=== PATIENT | female | born 1955 | race Caucasian/White ===

== ENCOUNTER 2019-09-24 08:10 | Day surgery (SDC) | payer MEDICARE, BC ==
[2019-09-21 12:43] LABS: HEMATOCRIT 40.3 % (36.0-48.0); HEMOGLOBIN 13.6 g/dL (12-16); MCH 30.7 pg (26.0-34.0); MCHC 33.7 g/dL (31.0-37.0); MEAN PLATELET VOLUME 11.1 fL (7.4-10.4); RBC 4.43 10x6/uL (4.00-5.40); RDW 12.7 % (11.5-14.5); WBC 6.6 10x3/uL (4.8-10.8)
[~2019-09-24] VITALS: Ht 167.6 cm; Wt 73.0 kg
[~2019-09-24 08:10] MED LIST: AMBIEN10 MG PO; BAYER CHEWABLE81 MG PO; BENADRYL25 MG; CALCIUM 600 +1 EAC3 PO; CARDURA1 MG PO; COREG12.5 MG PO; EVISTA60 MG PO; FISH OIL 1,0001 CA1 PO; GORDON'S VITE480 G1; ISOSORBIDE MONO30 M1 PO; LIPITOR20 MG PO; LUTEIN20 MG; MAG-OX 400 MG400 MG PO; MULTI-DAY VITAM1 TAB PO; NITROSTAT0.3 MG SL; NP THYROID30 MG; OMEPRAZOLE20 M1 PO; PROBIOTIC1 EAC1; VITAMIN D5000 UNIT PO; ZYRTEC10 MG PO
[2019-09-24 09:54] VITALS: BP 161/63; Ht 167.6 cm; Wt 73.0 kg
[2019-09-24] MEDS ORDERED: HYDROCODON-ACE1 EA10 PO (13:21)
--- NOTE | 2019-09-24 13:37 | NUR ---
PATIENT WAS LATE GETTING TO ROOM DUE TO HAVING TO WAIT FOR CAMERA AND LIGHT CORDS TO BE FLASHED FOR THE PROCEDURE
--- NOTE | 2019-09-24 14:30 | NUR ---
ZAYNAB FULL LIQUID DIET TRAY ASKING TO GET UP TO BATHROOM. PIV REMOVED CATHETER TIP INTACT ZAYNAB WELL.
--- NOTE | 2019-09-24 14:45 | NUR ---
DC TEACHING COMPLETE NORCO 10/325MG PO GIVEN FOR PAIN OF 5 IN RT KNEE STATES BURNING FEELING ICE PRESENT AT KNEE
--- NOTE | 2019-09-24 15:00 | NUR ---
PT UP INTO WC W/O ANY ASSISTANCE OR USING CRUTCHES. DRIVING PT HOME. OUT VIA WHEELCHAIR BY AMBROCIO BECERRA
--- NOTE | 2019-09-26 10:08 | OP ---
PATIENT NAME: ANANT HAWKINS MEDICAL RECORD: [id number] :51 LOCATION:D.OPS ADMISSION DATE: SURGEON: LILIAN MAST MD DATE OF OPERATION: 09/24/2019 PREOPERATIVE DIAGNOSIS: Lateral meniscus tear of the right knee. POSTOPERATIVE DIAGNOSIS: Lateral meniscus tear of the right knee. PROCEDURE: Arthroscopic partial lateral meniscectomy. SURGEON: Lilian Mast MD ANESTHESIA: General. INTRAOPERATIVE COMPLICATIONS: None. SUMMARY OF PATHOLOGIC FINDINGS: The patient did indeed have a complex tear of the posterior horn of the lateral meniscus that basically was from the anterior to the root in the posterior medial aspect of the lateral compartment all the way around to approximately 8 o'clock. After debridement, substantial amount of meniscus was retained and no significant chondromalacia was seen at any point during the case. OPERATIVE SUMMARY IN DETAIL: After obtaining the appropriate preoperative orthopedic surgery consent as well as anesthetic consultation, evaluation and clearance, the patient was brought to the operating room and placed on the operating table in supine position. After adequate general laryngeal mask airway was administered, tourniquet was placed about the proximal aspect of the right lower extremity. Right lower extremity was then prepped and draped in routine sterile fashion. The leg was elevated and exsanguinated, tourniquet was inflated to 350 mmHg. Routine inferolateral portal was established followed by superomedial portal and inferomedial portal. Diagnostic arthroscopy showed the medial compartment to be relatively pristine with maybe a small amount of early chondromalacia. With the leg in a [id number], the lateral meniscus was detected. The tear was noted. Intraoperative photographs were taken. At this point, a combination of the arthroscopic meniscotome as well as the arthroscopic resector were utilized to debride all the torn portions of the lateral meniscus back to stable meniscal portions. The post-debridement pictures were taken as well. Having completed this, the knee was insufflated with 80 mg of Depo-Medrol with 30 cc of 0.25% Marcaine with epinephrine. Arthroscopy portals were closed in routine interrupted fashion using 4-0 Prolene. Sterile dressings were applied. The patient was awakened and taken to recovery room in stable condition. All final needle and sponge counts were correct. TRANSINT:[id number] Voice Confirmation ID: [id number] DOCUMENT ID: [id number] OPERATIVE REPORT [id number] SHRUTHIANANT TORRES MD, LILIAN ARSHAD at 1008 CC: [id number] DICTATION DATE: 09/24/19 1323 DIETARY MANAGER: 09/24/19 2339 [facility] 09/24/19 [facility] [address] [place] [address]
== END 2019-09-24 15:00 | disposition home or self-care (01) ==
LOC: D.OPS 08:10 → D.PAN 09:45 → D.OPS 10:00 → D.PAN 10:55 → D.OPS 10:55 → D.PAN 11:15 → D.OPS 11:15
PROVIDERS: Anesthesiology; ATTEND Orthopaedic Surgery
DX: S83.281A Other tear of lateral meniscus, current injury, right knee, initial encounter (principal); X58.XXXA Exposure to other specified factors, initial encounter; M25.561 Pain in right knee

== ENCOUNTER → 2020-01-30 09:38 | Outpatient (CLI) | payer MEDICARE, BC ==
[2019-09-24 09:54] VITALS: BMI 26.0
[~2020-01-30 09:38] MED LIST changes: +HYDROCODON-ACE1 EA10 PO
== END | disposition home or self-care (01) ==
LOC: D.MRI 09:38
PROVIDERS: ATTEND Clinical Nurse Specialist Family Health
DX: M25.561 Pain in right knee (principal)

== ENCOUNTER 2020-02-07 06:08 | Day surgery (SDC) | payer MEDICARE, BC ==
[~2020-02-07] VITALS: Ht 170.2 cm; Wt 73.0 kg
[~2020-02-07 06:08] MED LIST changes: +BENTYL 20 MG TA20 MG PO
[2020-02-07 06:32] LABS: HEMATOCRIT 40.5 % (36.0-48.0); HEMOGLOBIN 13.2 g/dL (12-16); MCH 30.3 pg (26.0-34.0); MCHC 32.6 g/dL (31.0-37.0); MCV 92.9 fL (80.0-100.0); MEAN PLATELET VOLUME 10.4 fL (7.4-10.4); RBC 4.36 10x6/uL (4.00-5.40); RDW 13.1 % (11.5-14.5); WBC 6.1 10x3/uL (4.8-10.8)
[2020-02-07 07:22] VITALS: BP 136/69; Ht 170.2 cm; Wt 73.0 kg
[2020-02-07] MEDS ORDERED: HYDROCODON-ACE1 EA10 PO (09:19)
--- NOTE | 2020-02-07 10:28 | NUR ---
1020 PT MEDICATED FOR POST OP PAIN. PAIN LEVEL IS A 3 OUT OF 10.
--- NOTE | 2020-02-07 10:56 | NUR ---
1046 IV DC'D. CATHETER TIP INTACT. NO BLEEDING AT SITE. BANDAID APPLIED. PT VOICES UNDERSTANDING OF DISCHARGE INSTRUCTIONS AND STATES SHE IS READY TO GO HOME 1059 PT READY FOR DISCHARGE HOME. PAIN LEVEL REMAINS AT A 3.
--- NOTE | 2020-02-11 11:32 | OP ---
PATIENT NAME: ANANT HAWKINS MEDICAL RECORD: [id number] :51 LOCATION:[facility] ADMISSION DATE: SURGEON: LILIAN MAST MD DATE OF OPERATION: 02/07/2020 PREOPERATIVE DIAGNOSIS: Right lateral meniscus tear of knee. POSTOPERATIVE DIAGNOSIS: Right lateral meniscus tear of knee. PROCEDURE: Arthroscopic partial lateral meniscectomy. SURGEON: Lilian Mast MD ANESTHESIA: General. INTRAOPERATIVE COMPLICATIONS: None. SUMMARY OF PATHOLOGIC FINDINGS: The patient has a complex tear of the posterior horn of the lateral meniscus consistent with the preoperative MRI, very minimal amount of arthritis was seen in any portion of the knee. OPERATIVE SUMMARY IN DETAIL: After obtaining the appropriate preoperative orthopedic surgery consent as well as anesthetic consultation, evaluation and clearance, the patient was brought to the operating room and placed on the operating table in a supine position. After adequate general laryngeal mask airway was administered, tourniquet was placed on the proximal aspect of the right lower extremity. Right lower extremity was then prepped and draped in routine sterile fashion. The appropriate timeout was taken and agreed upon by all given the appropriate patient unique identifiers. The leg was elevated and exsanguinated, tourniquet inflated to 350 mmHg. Routine inferolateral portal was established followed by superomedial portal and inferomedial portal. Diagnostic arthroscopy did reveal the above finding of the lateral meniscus tear. Combination of a meniscotome as well as an arthroscopic resector was utilized to debride the lateral meniscus back to a very stable meniscal elements. The patient had substantially good retained meniscal of the lateral meniscus, only minimal chondromalacia was seen on the lateral femoral condyle, likely caused by the torn meniscus. Medial compartment was in excellent shape and the patellofemoral joint was likewise. At this point, the knee was insufflated with 30 cc of 0.25% Marcaine with epinephrine, 80 mg of Depo-Medrol. Arthroscopy portals were closed in routine interrupted fashion using 4-0 Prolene. Sterile dressings were applied. Tourniquet was deflated. The patient was awakened and taken to recovery room in stable condition. All final needle and sponge counts were correct. TRANSINT:[id number] Voice Confirmation ID: [id number] DOCUMENT ID: [id number] LILIAN MAST MD at 1132 CC: [id number] DICTATION DATE: 02/07/20 1330 RANGELAND MANAGEMENT SPECIALIST: 02/07/20 1609 [facility] [place] 02/07/20 [place] [id number] [place] [id number]
== END 2020-02-07 10:59 | disposition home or self-care (01) ==
LOC: D.OPS 06:08
PROVIDERS: Anesthesiology; ATTEND Orthopaedic Surgery
DX: S83.281A Other tear of lateral meniscus, current injury, right knee, initial encounter (principal); X58.XXXA Exposure to other specified factors, initial encounter; I25.2 Old myocardial infarction